=== PATIENT | female | born 1935 | race Caucasian/White ===

== ENCOUNTER 2021-08-17 17:47 | Inpatient (IN) | payer MEDICARE, OTHER ==
[2021-08-17] MEDS ORDERED: SODIUM CHLORIDE 0.9% 500 ML 500 ML IV ONE (18:11)
[2021-08-17 19:03] LABS: Basophils % (A) 0 %; Eosinophils # (A) 0.2 k/uL (0-0.7); Eosinophils % (A) 1 %; Lymphocytes # (A) 2.9 k/uL (1.0-4.8); Lymphocytes % (A) 25 %; MCH 28.6 pg (25.0-35.0); MCHC 32.5 g/dL (31.0-37.0); MCV 87.9 fL (80.0-100.0); Monocytes # (A) 0.4 k/uL (0-1.0); Monocytes % (A) 4 %; Neutrophils # (A) 7.9 k/uL (1.3-7.7); Neutrophils % (A) 68 %; Platelet Count 475 k/uL (150-450); RBC 4.21 m/uL (3.80-5.40); RDW 14.1 % (11.5-15.5); WBC 11.6 k/uL (3.8-10.6)
--- NOTE | 2021-08-17 19:05 | XR ---
EXAMINATION TYPE: XR chest 2V DATE OF EXAM: 08/17/2021 COMPARISON: NONE HISTORY: Altered mental status TECHNIQUE: 2 views FINDINGS: Heart is normal. Lungs are clear of infiltrate. There is no heart failure. There are no hil ar masses. Thoracic aorta is atheromatous. Bony thorax is intact. There is subacromial joint space na rrowing and impingement at both shoulder joints. IMPRESSION: No active cardiopulmonary disease.
[2021-08-17 19:11] LABS: Albumin 3.7 g/dL (3.5-5.0); Calcium 9.3 mg/dL (8.4-10.2); Potassium 4.3 mmol/L (3.5-5.1); Total Bilirubin 0.4 mg/dL (0.2-1.3); Total Protein 7.4 g/dL (6.3-8.2)
[2021-08-17 19:18] LABS: Prothrombin Time 10.5 sec (9.0-12.0)
[2021-08-17 19:21] LABS: Partial Thromboplastin Time 21.4 sec (22.0-30.0)
[2021-08-17] MEDS ORDERED: ONDANSETRON 4 MG/2 ML VIAL IVP STA (19:36)
[2021-08-17 20:06] LABS: Appearance,Urine Cloudy (Clear); Bacteria,Urine Rare /hpf; Bilirubin,Urine Negative (Negative); Blood,Urine Negative (Negative); Color,Urine Yellow; Glucose,Urine (UA) Negative (Negative); Hyaline Casts,Urine 1 /lpf (0-2); Ketones,Urine 1+ (Negative); Leukocyte Esterase,Urine Large (Negative); Mucus,Urine Rare /hpf; Nitrite,Urine Negative (Negative); Protein,Urine 2+ (Negative); RBC,Urine 7 /hpf (0-5); Specific Gravity,Urine 1.019 (1.001-1.035); Squamous Epithelial Cell,Urine 5 /hpf (0-4); Urobilinogen,Urine <2.0 mg/dL (<2.0); WBC,Urine >182 /hpf (0-5)
[2021-08-17 20:11] LABS: Amphetamine Screen,Urine Not Detected (NotDetected); Barbiturate Screen,Urine Not Detected (NotDetected); Benzodiazepines Screen,Urine Not Detected (NotDetected); Cocaine Screen,Urine Not Detected (NotDetected); Methadone Screen, Urine Not Detected (NotDetected); Opiate Screen,Urine Not Detected (NotDetected); Oxycodone Screen, Urine Not Detected (NotDetected); Phencyclidine Screen,Urine Not Detected (NotDetected); Tricyclic Antidepressant,Urine Not Detected (NotDetected); Urn Cannabinoid Scrn Not Detected (NotDetected)
--- NOTE | 2021-08-17 20:22 | ED ---
Female Urogenital HPI - General Chief complaint: Urogenital Stated complaint: possible UTI Source: patient Mode of arrival: EMS Limitations: no limitations - History of Present Illness Initial comments: 85-year-old female past history of dementia presents emergency Department with reported dizziness, weakness and burning with urination. Daughter provides majority of the history over the phone. Patient lives with the daughter and states that she has been treated for the past 1.5 weeks for a urinary tract infection. She was on Keflex. She finished the antibiotic however continues to have increased frequency of urination and burning. The daughter states that she has been unable to sleep because of her symptoms. She also reports that she's had some dizziness with inability to get up and eat. Because of her failure of outpatient therapy she was called an ambulance to have her brought to the hospital. Patient admits to the symptoms. Denies any abdominal pain or back pain. Denies issues with her bowel habits. No other alleviating, Perceptin or modifying factors - Related Data Allergies Allergy/AdvReac Type Severity Reaction Status Date / Time No Known Allergies Allergy Verified 08/17/21 20:49 Review of Systems ROS Statement: Those systems with pertinent positive or pertinent negative responses have been documented in the HPI. ROS Other: All systems not noted in ROS Statement are negative. Past Medical History History of Any Multi-Drug Resistant Organisms: None Reported Past Psychological History: No Psychological Hx Reported Smoking Status: Never smoker Past Alcohol Use History: None Reported Past Drug Use History: None Reported General Exam Limitations: no limitations Course Vital Signs 08/17/21 18:01 Temperature 97.4 F L Pulse Rate 79 Respiratory 16 Rate Blood Pressure 208/96 O2 Sat by Pulse 95 Oximetry Medical Decision Making - Medical Decision Making Upon arrival the patient is placed into room 7. A thorough history and physical exam is performed. IV is established A scissor conducted. Patient does provide a urine sample which does demonstrate gross infection. She is given a dose of Rocephin after blood cultures were obtained. Did recommend admission for IV antibiotics for which the patient did agree to. However also agrees to treatment plan. She remained in stable condition awaiting a bed on the floor. - Lab Data Result diagrams: 08/17/21 18:53 08/17/21 18:53 Lab Results 08/17/21 08/17/21 08/17/21 Range/Units 18:53 18:53 18:53 WBC 11.6 H (3.8-10.6) k/uL RBC 4.21 (3.80-5.40) m/uL Hgb 12.0 (11.4-16.0) gm/dL Hct 37.0 (34.0-46.0) % MCV 87.9 (80.0-100.0) fL MCH 28.6 (25.0-35.0) pg MCHC 32.5 (31.0-37.0) g/dL RDW 14.1 (11.5-15.5) % Plt Count 475 H (150-450) k/uL MPV 7.0 Neutrophils % 68 % Lymphocytes % 25 % Monocytes % 4 % Eosinophils % 1 % Basophils % 0 % Neutrophils # 7.9 H (1.3-7.7) k/uL Lymphocytes # 2.9 (1.0-4.8) k/uL Monocytes # 0.4 (0-1.0) k/uL Eosinophils # 0.2 (0-0.7) k/uL Basophils # 0.0 (0-0.2) k/uL PT 10.5 (9.0-12.0) sec INR 1.0 (<1.2) APTT 21.4 L (22.0-30.0) sec Sodium (137-145) mmol/L Potassium (3.5-5.1) mmol/L Chloride (98-107) mmol/L Carbon Dioxide (22-30) mmol/L Anion Gap mmol/L BUN (7-17) mg/dL Creatinine (0.52-1.04) mg/dL Est GFR (CKD-EPI)AfAm (>60 ml/min/1.73 sqM) Est GFR (CKD-EPI)NonAf (>60 ml/min/1.73 sqM) Glucose (74-99) mg/dL Calcium (8.4-10.2) mg/dL Total Bilirubin (0.2-1.3) mg/dL AST (14-36) U/L ALT (4-34) U/L Alkaline Phosphatase (38-126) U/L Troponin I (0.000-0.034) ng/mL Total Protein (6.3-8.2) g/dL Albumin (3.5-5.0) g/dL Urine Color Yellow Urine Appearance Cloudy H (Clear) Urine pH 6.0 (5.0-8.0) Ur Specific Kimberly 1.019 (1.001-1.035) Urine Protein 2+ H (Negative) Urine Glucose (UA) Negative (Negative) Urine Ketones 1+ H (Negative) Urine Blood Negative (Negative) Urine Nitrite Negative (Negative) Urine Bilirubin Negative (Negative) Urine Urobilinogen <2.0 (<2.0) mg/dL Ur Leukocyte Esterase Large H (Negative) Urine RBC 7 H (0-5) /hpf Urine WBC >182 H (0-5) /hpf Urine WBC Clumps Few H (None) /hpf Ur Squamous Epith Cells 5 H (0-4) /hpf Urine Bacteria Rare H (None) /hpf Hyaline Casts 1 (0-2) /lpf Urine Mucus Rare H (None) /hpf Urine Opiates Screen Not Detected (NotDetected) Ur Oxycodone Screen Not Detected (NotDetected) Urine Methadone Screen Not Detected (NotDetected) Ur Propoxyphene Screen Not Detected (NotDetected) Ur Barbiturates Screen Not Detected (NotDetected) U Tricyclic Antidepress Not Detected (NotDetected) Ur Phencyclidine Scrn Not Detected (NotDetected) Ur Amphetamines Screen Not Detected (NotDetected) U Methamphetamines Scrn Not Detected (NotDetected) U Benzodiazepines Scrn Not Detected (NotDetected) Urine Cocaine Screen Not Detected (NotDetected) U Marijuana (THC) Screen Not Detected (NotDetected) 08/17/21 08/17/21 Range/Units 18:53 18:53 WBC (3.8-10.6) k/uL RBC (3.80-5.40) m/uL Hgb (11.4-16.0) gm/dL Hct (34.0-46.0) % MCV (80.0-100.0) fL MCH (25.0-35.0) pg MCHC (31.0-37.0) g/dL RDW (11.5-15.5) % Plt Count (150-450) k/uL MPV Neutrophils % % Lymphocytes % % Monocytes % % Eosinophils % % Basophils % % Neutrophils # (1.3-7.7) k/uL Lymphocytes # (1.0-4.8) k/uL Monocytes # (0-1.0) k/uL Eosinophils # (0-0.7) k/uL Basophils # (0-0.2) k/uL PT (9.0-12.0) sec INR (<1.2) APTT (22.0-30.0) sec Sodium 135 L (137-145) mmol/L Potassium 4.3 (3.5-5.1) mmol/L Chloride 102 (98-107) mmol/L Carbon Dioxide 17 L (22-30) mmol/L Anion Gap 16 mmol/L BUN 23 H (7-17) mg/dL Creatinine 1.37 H (0.52-1.04) mg/dL Est GFR (CKD-EPI)AfAm 41 (>60 ml/min/1.73 sqM) Est GFR (CKD-EPI)NonAf 35 (>60 ml/min/1.73 sqM) Glucose 126 H (74-99) mg/dL Calcium 9.3 (8.4-10.2) mg/dL Total Bilirubin 0.4 (0.2-1.3) mg/dL AST 24 (14-36) U/L ALT 15 (4-34) U/L Alkaline Phosphatase 70 (38-126) U/L Troponin I 0.017 (0.000-0.034) ng/mL Total Protein 7.4 (6.3-8.2) g/dL Albumin 3.7 (3.5-5.0) g/dL Urine Color Urine Appearance (Clear) Urine pH (5.0-8.0) Ur Specific Kimberly (1.001-1.035) Urine Protein (Negative) Urine Glucose (UA) (Negative) Urine Ketones (Negative) Urine Blood (Negative) Urine Nitrite (Negative) Urine Bilirubin (Negative) Urine Urobilinogen (<2.0) mg/dL Ur Leukocyte Esterase (Negative) Urine RBC (0-5) /hpf Urine WBC (0-5) /hpf Urine WBC Clumps (None) /hpf Ur Squamous Epith Cells (0-4) /hpf Urine Bacteria (None) /hpf Hyaline Casts (0-2) /lpf Urine Mucus (None) /hpf Urine Opiates Screen (NotDetected) Ur Oxycodone Screen (NotDetected) Urine Methadone Screen (NotDetected) Ur Propoxyphene Screen (NotDetected) Ur Barbiturates Screen (NotDetected) U Tricyclic Antidepress (NotDetected) Ur Phencyclidine Scrn (NotDetected) Ur Amphetamines Screen (NotDetected) U Methamphetamines Scrn (NotDetected) U Benzodiazepines Scrn (NotDetected) Urine Cocaine Screen (NotDetected) U Marijuana (THC) Screen (NotDetected) - EKG Data EKG Comments: EKG demonstrates a normal sinus rhythm with a ventricular rate of 80. OK interval 180. QRS 128. QTC of 502. Right bundle branch block. No acute ST segment elevations Disposition Clinical Impression: UTI (urinary tract infection), Failure of outpatient treatment, Encephalopathy acute Disposition: ADMITTED IP TO THIS [facility] Condition: Stable Is patient prescribed a controlled substance at d/c from ED?: No Referrals: Sheng Gibson DO [Primary Care Provider] - 1-2 days Decision to Admit Reason: Admit from EC Decision Date: 08/17/21 Decision Time: 20:50
[2021-08-17] MEDS ORDERED: cefTRIAXone IN SWFI 1,000 MG/10 ML SYRINGE IVP STA (20:26)
[2021-08-17] MEDS ORDERED: NALOXONE 0.4 MG/ML 1 ML VIAL IV PRN (20:50)
[2021-08-17] MEDS ORDERED: ACETAMINOPHEN TAB 325 MG TAB PO PRN (20:50)
[2021-08-17] MEDS: SODIUM CHLORIDE 0.9% 1,000 ML IV SCH (22:05)
[2021-08-18 01:34] LABS: C Reactive Protein 1.7 mg/dL (<1.0)
[2021-08-18 01:41] LABS: Prothrombin Time 10.7 sec (9.0-12.0)
[2021-08-18] MEDS ORDERED: IBUPROFEN 400 MG TAB PO PRN (02:29)
[2021-08-18] MEDS ORDERED: ACETAMINOPHEN TAB 500 MG TAB PO PRN (02:29)
--- NOTE | 2021-08-18 02:43 | P.HPIM ---
History of Present Illness H&P Date: 08/17/21 Chief Complaint: generalized weakness, dysuria 85 year old female with advanced dementia patient recently about 1.5 weeks ago diagnosed with UTI , and was started on keflex which she finished the course. however, her symptoms of dysuria and frequent urination persisted along with generalized weakness and dizziness, and urinary incontinence. for which she was brought in by her daughter today , patient has no other complaints of fever, chills, chest pain , trouble domenic athing, body aches, nausea or vomiting . she denies any cough, sore throat, or changes in taste or smell sensation. she claims to be vaccinated against covid patient is not a reliable historian due to advanced dementia in the ED , she has elevated creatinine unkown baseline. urine was not a clean catch COVID test positive, patient is not requiring oxygen Review of Systems Pertinent positives as noted in HPI. All other systems were reviewed and are negative Past Medical History Past Medical History: Unable to Obtain Additional Past Medical History / Comment(s): COPD, HTN, DM and hypothyroid , dementia History of Any Multi-Drug Resistant Organisms: None Reported Past Surgical History: Unable to Obtain Past Psychological History: No Psychological Hx Reported Smoking Status: Never smoker Past Alcohol Use History: None Reported Past Drug Use History: None Reported - Past Family History family Family Medical History: Unable to Obtain Medications and Allergies Home Medications Medication Instructions Recorded Confirmed Type Acetaminophen Tab [Tylenol Tab] 500 mg PO Q6H PRN 08/17/21 08/17/21 History Aspirin 81 mg PO DAILY@1000 08/17/21 08/17/21 History Ibuprofen [Motrin Ib] 400 mg PO Q8H PRN 08/17/21 08/17/21 History Levothyroxine Sodium [Synthroid] 25 mcg PO DAILY@209908/17/21 08/17/21 History Metoprolol Succinate [Toprol XL] 50 mg PO DAILY@1500 08/17/21 08/17/21 History Nitrofurantoin Macrocrystal 50 mg PO DAILY@1000 08/17/21 08/17/21 History [Macrodantin] Rosuvastatin Calcium [Crestor] 5 mg PO MOFR@209908/17/21 08/17/21 History hydrALAZINE HCL [Apresoline] 25 mg PO TID@1000,209908/17/21 08/17/21 History lisinopriL [Zestril] 40 mg PO DAILY@1500 08/17/21 08/17/21 History metFORMIN HCL [Glucophage] 500 mg PO TID@1000,1500,2100 08/17/21 08/17/21 History Allergies Allergy/AdvReac Type Severity Reaction Status Date / Time No Known Allergies Allergy Verified 08/17/21 20:49 Physical Exam Vitals: Vital Signs Temp Pulse Resp BP Pulse Ox 08/17/21 22:21 93 18 203/104 95 08/17/21 18:01 97.4 F L 79 16 208/96 95 Intake and Output 08/17/21 08/17/21 08/17/21 06:59 14:59 22:59 Other: Weight 81.647 kg Constitutional: No acute distress, conversant, pleasant, cooperative Eyes: Anicteric sclerae, moist conjunctiva, Pupils equal round reactive to light ENMT: NC/AT Oropharynx clear, no erythema, or exudates Neck: Supple, no masses, or JVD No carotid bruits No thyromegaly Lungs: Clear to auscultation Clear to percussion Normal respiratory effort, no accessory muscle use Cardiovascular: Heart regular in rate and rhythm, No murmurs, gallops, or rubs No peripheral edema Abdominal: Soft Nontender, no guarding, rebound or rigidity Abdomen moving with respiration Normoactive bowel sounds No hepatomegaly, No splenomegaly No palpable mass No abdominal wall hernia noted Skin: Normal temperature, tone, texture, turgor No induration No subcutaneous nodules No rash, lesions No ulcers Extremities: No digital cyanosis No clubbing Pedal pulses intact and symmetrical Radial pulses intact and symmetrical No calf tenderness Psychiatric: Alert and oriented to person, only Neuro Muscles Strength 3-4/5 in all 4 extremities Sensation to light touch grossly present throughout Cranial nerves II-XII grossly intact Lymphatics: no palpable cervical or supraclavicular , or inguinal lymph nodes Results CBC & Chem 7: 08/17/21 18:53 08/17/21 18:53 Labs: Abnormal Lab Results - Last 24 Hours (Table) 08/17/21 08/17/21 08/17/21 Range/Units 18:53 18:53 18:53 WBC 11.6 H (3.8-10.6) k/uL Plt Count 475 H (150-450) k/uL Neutrophils # 7.9 H (1.3-7.7) k/uL APTT 21.4 L (22.0-30.0) sec Sodium (137-145) mmol/L Carbon Dioxide (22-30) mmol/L BUN (7-17) mg/dL Creatinine (0.52-1.04) mg/dL Glucose (74-99) mg/dL Urine Appearance Cloudy H (Clear) Urine Protein 2+ H (Negative) Urine Ketones 1+ H (Negative) Ur Leukocyte Esterase Large H (Negative) Urine RBC 7 H (0-5) /hpf Urine WBC >182 H (0-5) /hpf Urine WBC Clumps Few H (None) /hpf Ur Squamous Epith Cells 5 H (0-4) /hpf Urine Bacteria Rare H (None) /hpf Urine Mucus Rare H (None) /hpf Coronavirus (PCR) (Not Detectd) 08/17/21 08/17/21 Range/Units 18:53 21:42 WBC (3.8-10.6) k/uL Plt Count (150-450) k/uL Neutrophils # (1.3-7.7) k/uL APTT (22.0-30.0) sec Sodium 135 L (137-145) mmol/L Carbon Dioxide 17 L (22-30) mmol/L BUN 23 H (7-17) mg/dL Creatinine 1.37 H (0.52-1.04) mg/dL Glucose 126 H (74-99) mg/dL Urine Appearance (Clear) Urine Protein (Negative) Urine Ketones (Negative) Ur Leukocyte Esterase (Negative) Urine RBC (0-5) /hpf Urine WBC (0-5) /hpf Urine WBC Clumps (None) /hpf Ur Squamous Epith Cells (0-4) /hpf Urine Bacteria (None) /hpf Urine Mucus (None) /hpf Coronavirus (PCR) Detected A (Not Detectd) Assessment and Plan Assessment: urinary tract infection failed outpatient therapy COVID positive , without respiratory symptoms plan supportive care check D-dimer, LDH CRP, ferritin, trops, PT/INR, for prognostic value currently on room air tylenol for fever follow up cultures empiric antibiotics with Rocephin for UTI monitor vital signs elevated creatinine , unknown baseline renal function possible component of CKD due to underlying DM and advanced ago avoid nephrotoxic meds monitor urine output chronic conditions COPD , compensated, duo nebs PRN DM , hold oral hypoglycemic agents , insulin sliding scale hypertension , resume BP meds hypothryoid , resume levo thyroxin dementia full code DVT PPX lovenox sc daily anticipated length of stay > 2 midnights
[2021-08-18 05:42] LABS: Basophils % (A) 0 %; Eosinophils # (A) 0.2 k/uL (0-0.7); Eosinophils % (A) 3 %; HCT 38.4 % (34.0-46.0); HGB 12.1 gm/dL (11.4-16.0); Lymphocytes # (A) 1.9 k/uL (1.0-4.8); Lymphocytes % (A) 23 %; MCH 28.1 pg (25.0-35.0); MCHC 31.4 g/dL (31.0-37.0); MCV 89.4 fL (80.0-100.0); Mean Platelet Volume 6.6; Monocytes # (A) 0.3 k/uL (0-1.0); Monocytes % (A) 4 %; Neutrophils # (A) 5.8 k/uL (1.3-7.7); Neutrophils % (A) 69 %; Platelet Count 445 k/uL (150-450); WBC 8.5 k/uL (3.8-10.6)
[2021-08-18 06:04] LABS: Potassium 4.5 mmol/L (3.5-5.1)
[2021-08-18] MEDS ORDERED: cloNIDine HCL 0.2 MG TAB PO STA (06:19)
[2021-08-18] MEDS: SODIUM CHLORIDE 0.9% 1,000 ML IV SCH ×2 (08:28→23:31)
[2021-08-18] MEDS: ENOXAPARIN 40 MG/0.4 ML SYRINGE SQ SCH (08:29)
[2021-08-18] MEDS: hydrALAZINE HCL 25 MG TAB PO SCH ×2 (08:29→20:55)
[2021-08-18] MEDS: ASPIRIN 81 MG PO SCH (08:29)
[2021-08-18 08:30] LABS: Glucose,Whole Blood 153 mg/dL (75-99)
[2021-08-18] MEDS: INSULIN ASPART (NovoLOG) 100 UNIT/ML VIAL SQ SCH ×4 (08:32→20:55)
[2021-08-18 13:31] LABS: Glucose,Whole Blood 140 mg/dL (75-99)
[2021-08-18] MEDS ORDERED: HALOPERIDOL LACTATE 5 MG/ML 1 ML VIAL IM PRN (14:10)
--- NOTE | 2021-08-18 14:39 | P.PN ---
Subjective Progress Note Date: 08/18/21 Patient appears to be dizzy, weak. Denies any shortness of breath, pain. Denies dysuria. He denies fevers. Objective - Vital Signs Vital signs: Vital Signs Temp 97.9 F 08/18/21 08:26 Pulse 85 08/18/21 13:05 Resp 18 08/18/21 13:05 BP 165/90 08/18/21 13:05 Pulse Ox 96 08/18/21 13:05 Intake & Output 08/17/21 08/18/21 08/18/21 18:59 06:59 18:59 Weight 81.647 kg Other: Voiding Method Bedside Commode - Exam Gen: awake, alert HEENT: normocephalic, atraumatic, good hearing acuity, moist mucous membranes Resp: good air exchange, breathing comfortably with no accessory muscle use CVS: good distal perfusion x 4, GI: soft, NTTP, ND : + SPT, no CVAT, muhammad catheter not present MSK: no pitting edema, no clubbing Neuro: non-focal, moving all extremities Psych: cooperative, euthymic mood - Labs CBC & Chem 7: 08/18/21 05:19 08/18/21 05:19 Labs: Abnormal Lab Results - Last 24 Hours (Table) 08/17/21 08/17/21 08/17/21 Range/Units 00:00 00:00 18:53 WBC 11.6 H (3.8-10.6) k/uL Plt Count 475 H (150-450) k/uL Neutrophils # 7.9 H (1.3-7.7) k/uL APTT (22.0-30.0) sec Fibrinogen 518 H (200-500) mg/dL D-Dimer 1.55 H (<0.60) mg/L FEU Sodium (137-145) mmol/L Carbon Dioxide (22-30) mmol/L BUN (7-17) mg/dL Creatinine (0.52-1.04) mg/dL Glucose (74-99) mg/dL POC Glucose (mg/dL) (75-99) mg/dL C-Reactive Protein 1.7 H (<1.0) mg/dL Urine Appearance (Clear) Urine Protein (Negative) Urine Ketones (Negative) Ur Leukocyte Esterase (Negative) Urine RBC (0-5) /hpf Urine WBC (0-5) /hpf Urine WBC Clumps (None) /hpf Ur Squamous Epith Cells (0-4) /hpf Urine Bacteria (None) /hpf Urine Mucus (None) /hpf Coronavirus (PCR) (Not Detectd) 08/17/21 08/17/21 08/17/21 Range/Units 18:53 18:53 18:53 WBC (3.8-10.6) k/uL Plt Count (150-450) k/uL Neutrophils # (1.3-7.7) k/uL APTT 21.4 L (22.0-30.0) sec Fibrinogen (200-500) mg/dL D-Dimer (<0.60) mg/L FEU Sodium 135 L (137-145) mmol/L Carbon Dioxide 17 L (22-30) mmol/L BUN 23 H (7-17) mg/dL Creatinine 1.37 H (0.52-1.04) mg/dL Glucose 126 H (74-99) mg/dL POC Glucose (mg/dL) (75-99) mg/dL C-Reactive Protein (<1.0) mg/dL Urine Appearance Cloudy H (Clear) Urine Protein 2+ H (Negative) Urine Ketones 1+ H (Negative) Ur Leukocyte Esterase Large H (Negative) Urine RBC 7 H (0-5) /hpf Urine WBC >182 H (0-5) /hpf Urine WBC Clumps Few H (None) /hpf Ur Squamous Epith Cells 5 H (0-4) /hpf Urine Bacteria Rare H (None) /hpf Urine Mucus Rare H (None) /hpf Coronavirus (PCR) (Not Detectd) 08/17/21 08/18/21 08/18/21 Range/Units 21:42 05:19 08:30 WBC (3.8-10.6) k/uL Plt Count (150-450) k/uL Neutrophils # (1.3-7.7) k/uL APTT (22.0-30.0) sec Fibrinogen (200-500) mg/dL D-Dimer (<0.60) mg/L FEU Sodium 136 L (137-145) mmol/L Carbon Dioxide 21 L (22-30) mmol/L BUN 19 H (7-17) mg/dL Creatinine 1.17 H (0.52-1.04) mg/dL Glucose 139 H (74-99) mg/dL POC Glucose (mg/dL) 153 H (75-99) mg/dL C-Reactive Protein (<1.0) mg/dL Urine Appearance (Clear) Urine Protein (Negative) Urine Ketones (Negative) Ur Leukocyte Esterase (Negative) Urine RBC (0-5) /hpf Urine WBC (0-5) /hpf Urine WBC Clumps (None) /hpf Ur Squamous Epith Cells (0-4) /hpf Urine Bacteria (None) /hpf Urine Mucus (None) /hpf Coronavirus (PCR) Detected A (Not Detectd) 08/18/21 Range/Units 13:29 WBC (3.8-10.6) k/uL Plt Count (150-450) k/uL Neutrophils # (1.3-7.7) k/uL APTT (22.0-30.0) sec Fibrinogen (200-500) mg/dL D-Dimer (<0.60) mg/L FEU Sodium (137-145) mmol/L Carbon Dioxide (22-30) mmol/L BUN (7-17) mg/dL Creatinine (0.52-1.04) mg/dL Glucose (74-99) mg/dL POC Glucose (mg/dL) 140 H (75-99) mg/dL C-Reactive Protein (<1.0) mg/dL Urine Appearance (Clear) Urine Protein (Negative) Urine Ketones (Negative) Ur Leukocyte Esterase (Negative) Urine RBC (0-5) /hpf Urine WBC (0-5) /hpf Urine WBC Clumps (None) /hpf Ur Squamous Epith Cells (0-4) /hpf Urine Bacteria (None) /hpf Urine Mucus (None) /hpf Coronavirus (PCR) (Not Detectd) Microbiology - Last 24 Hours (Table) 08/17/21 18:53 Urine Culture - Preliminary Urine,Voided Assessment and Plan Assessment: Urinary tract infection failed outpatient therapy COVID positive , without respiratory symptoms supportive care check D-dimer, LDH CRP, ferritin, trops, PT/INR, for prognostic value currently on room air tylenol for fever follow up cultures empiric antibiotics with Rocephin for UTI monitor vital signs Elevated creatinine, unknown baseline renal function possible component of CKD due to underlying DM and advanced age avoid nephrotoxic meds monitor urine output Renal US, pending COPD duo nebs PRN DM Hypertension Hypothryoid Dementia hold oral hypoglycemic agents, insulin sliding scale resume BP meds resume levothyroxine Full code DVT PPX lovenox sc daily
--- NOTE | 2021-08-18 15:59 | US ---
EXAMINATION TYPE: US kidneys/renal and bladder DATE OF EXAM: 08/18/2021 COMPARISON: NONE CLINICAL HISTORY: UTI, PAULO. COVID-19 inpatient EXAM MEASUREMENTS: Right Kidney: 10.3 x 4.6 x 5.4 cm Left Kidney: 10.4 x 4.7 x 4.7 cm Right Kidney: Multiple anechoic foci seen; largest area appears to have some internal echoes measurin g 3.3 x 2.3 x 2.1 cm at the superior pole. Left Kidney: Multiple anechoic foci seen; largest measuring 1.4 x 1.3 x 1.5 cm at the inferior pole. Bladder: Not seen, bladder area scanned There is no evidence for hydronephrosis at this point in time. No nephrolithiasis is seen. No solid masses are identified. The urinary bladder is anechoic. Bilateral ureteral jets are seen. IMPRESSION: Renal cystic changes noted.
[2021-08-18] MEDS: lisinopriL 20 MG TAB PO SCH (16:28)
[2021-08-18] MEDS: METOPROLOL SUCCINATE (ER) 50 MG TAB.ER.24H PO SCH (16:29)
[2021-08-18 17:49] LABS: Glucose,Whole Blood 177 mg/dL (75-99)
[2021-08-18 20:17] LABS: Glucose,Whole Blood 141 mg/dL (75-99)
[2021-08-18] MEDS: LEVOTHYROXINE 25 MCG TAB PO SCH (20:55)
[2021-08-19] MEDS ORDERED: cloNIDine HCL 0.2 MG TAB PO ONE (02:00)
[2021-08-19 07:43] LABS: Glucose,Whole Blood 161 mg/dL (75-99)
[2021-08-19] MEDS: ENOXAPARIN 40 MG/0.4 ML SYRINGE SQ SCH (09:30)
[2021-08-19] MEDS: hydrALAZINE HCL 25 MG TAB PO SCH ×2 (09:30→21:01)
[2021-08-19] MEDS: INSULIN ASPART (NovoLOG) 100 UNIT/ML VIAL SQ SCH ×4 (09:30→21:00)
[2021-08-19] MEDS: ASPIRIN 81 MG PO SCH (09:30)
[2021-08-19 11:45] VITALS: BMI 29.9
[2021-08-19 12:27] LABS: Glucose,Whole Blood 120 mg/dL (75-99)
--- NOTE | 2021-08-19 15:28 | P.PN ---
Subjective Progress Note Date: 08/19/21 Patient appears to be weak but appears significantly less agitated. Denies any shortness of breath, pain. Denies dysuria. She denies fevers. Objective - Vital Signs Vital signs: Vital Signs Temp 97.4 F L 08/19/21 14:39 Pulse 82 08/19/21 14:39 Resp 18 08/19/21 14:39 BP 180/69 08/19/21 14:39 Pulse Ox 96 08/19/21 14:39 Intake & Output 08/18/21 08/19/21 08/19/21 18:59 06:59 18:59 Intake Total 222 500 240 Balance 222 500 240 Weight 81.647 kg 81.647 kg Intake: Oral 222 500 240 Other: Voiding Method Toilet Toilet # Voids 3 4 3 - Exam Gen: awake, alert HEENT: normocephalic, atraumatic, good hearing acuity, moist mucous membranes Resp: good air exchange, breathing comfortably with no accessory muscle use CVS: good distal perfusion x 4, GI: soft, NTTP, ND : + SPT, no CVAT, muhammad catheter not present MSK: no pitting edema, no clubbing Neuro: non-focal, moving all extremities Psych: cooperative, euthymic mood - Labs CBC & Chem 7: 08/18/21 05:19 08/18/21 05:19 Labs: Abnormal Lab Results - Last 24 Hours (Table) 08/18/21 08/18/21 08/19/21 Range/Units 17:42 20:15 07:31 POC Glucose (mg/dL) 177 H 141 H 161 H (75-99) mg/dL 08/19/21 Range/Units 12:09 POC Glucose (mg/dL) 120 H (75-99) mg/dL Microbiology - Last 24 Hours (Table) 08/17/21 18:45 Blood Culture - Preliminary Blood No Growth after 24 hours 08/17/21 18:30 Blood Culture - Preliminary Blood No Growth after 24 hours Assessment and Plan Assessment: Urinary tract infection failed outpatient therapy COVID positive , without respiratory symptoms supportive care check D-dimer, LDH CRP, ferritin, trops, PT/INR, for prognostic value currently on room air tylenol for fever follow up cultures, pending empiric antibiotics with Rocephin for UTI monitor vital signs PAULO on CKD III, improving avoid nephrotoxic meds monitor urine output Renal US, without hydronephrosis, abscess, but with benign renal cysts. COPD duo nebs PRN DM Hypertension Hypothryoid Dementia hold oral hypoglycemic agents, insulin sliding scale resume BP meds resume levothyroxine Full code DVT PPX lovenox sc daily
--- NOTE | 2021-08-19 15:30 | P.PN ---
Progress Note - Text Progress Note Date: 08/19/21 Dementia Delirium secondary to Covid and UTI I had a 46 minute goals of care discussion with patient's daughter Kristen as well as patient's son Erik who is the designated power of energy attorney. We discussed patient's overall clinical condition as well as the hospital course in terms of her acute care episode. We discussed CODE STATUS and what CPR entails as well as follow-up care to CPR and its complications. After a prolonged discussion, family agreed that patient's goals of care would be consistent with DO NOT RESUSCITATE DO NOT INTUBATE, and this change was reflected in the chart.
[2021-08-19] MEDS: lisinopriL 20 MG TAB PO SCH (16:11)
[2021-08-19 17:28] LABS: Glucose,Whole Blood 135 mg/dL (75-99)
[2021-08-19] MEDS: SODIUM CHLORIDE 0.9% 1,000 ML IV SCH (19:27)
[2021-08-19 20:47] LABS: Glucose,Whole Blood 138 mg/dL (75-99)
[2021-08-19] MEDS: LEVOTHYROXINE 25 MCG TAB PO SCH (21:00)
[2021-08-19] MEDS ORDERED: ATORVASTATIN 10 MG TAB PO SCH (21:00)
[2021-08-20] MEDS: SODIUM CHLORIDE 0.9% 1,000 ML IV SCH ×2 (03:48→15:44)
[2021-08-20 07:31] LABS: Glucose,Whole Blood 122 mg/dL (75-99)
[2021-08-20] MEDS: INSULIN ASPART (NovoLOG) 100 UNIT/ML VIAL SQ SCH ×4 (08:13→21:38)
[2021-08-20] MEDS: amLODIPine 5 MG TAB PO SCH (08:42)
[2021-08-20] MEDS: ASPIRIN 81 MG PO SCH (08:43)
[2021-08-20] MEDS: hydrALAZINE HCL 50 MG TAB PO SCH ×2 (08:43→20:46)
[2021-08-20] MEDS: ENOXAPARIN 40 MG/0.4 ML SYRINGE SQ SCH (08:43)
[2021-08-20 09:22] LABS: Basophils % (A) 1 %; Eosinophils # (A) 0.2 k/uL (0-0.7); Eosinophils % (A) 3 %; HCT 38.4 % (34.0-46.0); HGB 11.9 gm/dL (11.4-16.0); Hypochromasia Slight; Lymphocytes # (A) 2.2 k/uL (1.0-4.8); Lymphocytes % (A) 27 %; MCH 28.3 pg (25.0-35.0); MCHC 30.9 g/dL (31.0-37.0); MCV 91.4 fL (80.0-100.0); Mean Platelet Volume 6.9; Monocytes # (A) 0.4 k/uL (0-1.0); Monocytes % (A) 5 %; Neutrophils % (A) 63 %; Platelet Count 420 k/uL (150-450); WBC 7.9 k/uL (3.8-10.6)
[2021-08-20 09:24] LABS: African American GFR (CKD) 57 (>60 ml/min/1.73 sqM); Anion Gap 10 mmol/L; Blood Urea Nitrogen 16 mg/dL (7-17); Calcium 9.4 mg/dL (8.4-10.2); Carbon Dioxide 20 mmol/L (22-30); Chloride 109 mmol/L (98-107); Glucose 146 mg/dL (74-99); Magnesium 1.8 mg/dL (1.6-2.3); Non-African American GFR(CKD) 50 (>60 ml/min/1.73 sqM); Potassium 4.4 mmol/L (3.5-5.1); Sodium 139 mmol/L (137-145)
--- NOTE | 2021-08-20 12:08 | P.PN ---
Subjective Progress Note Date: 08/20/21 Patient appears to be clinically improving. Denies any shortness of breath, pain. Denies dysuria. She denies fevers. Microbiology showing gram-negative shaina growth, speciation and sensitivities are pending. Objective - Vital Signs Vital signs: Vital Signs Temp 97.7 F 08/20/21 07:00 Pulse 94 08/20/21 07:00 Resp 16 08/20/21 07:00 BP 202/70 08/20/21 07:00 Pulse Ox 94 L 08/20/21 07:00 Intake & Output 08/19/21 08/20/21 08/20/21 18:59 06:59 18:59 Intake Total 360 370 Output Total 200 Balance 160 370 Weight 81.647 kg Intake: Intake, IV Titration 370 Amount Sodium Chloride 0.9% 1, 320 000 ml @ 75 mls/hr IV . [id number] [facility] Rx#:[id number] cefTRIAXone 1 gm In 50 Sodium Chloride 0.9% 50 ml @ 100 mls/hr IVPB Q24H [facility] Rx#:[id number] Oral 360 Output: Urine 200 Other: Voiding Method Toilet Toilet Bedside Commode # Voids 3 4 - Exam Gen: awake, alert HEENT: normocephalic, atraumatic, good hearing acuity, moist mucous membranes Resp: good air exchange, breathing comfortably with no accessory muscle use CVS: good distal perfusion x 4, GI: soft, NTTP, ND : + SPT, no CVAT, muhammad catheter not present MSK: no pitting edema, no clubbing Neuro: non-focal, moving all extremities Psych: cooperative, euthymic mood - Labs CBC & Chem 7: 08/20/21 08:53 08/20/21 08:53 Labs: Abnormal Lab Results - Last 24 Hours (Table) 08/19/21 08/19/21 08/19/21 Range/Units 12:09 17:20 20:46 MCHC (31.0-37.0) g/dL Chloride (98-107) mmol/L Carbon Dioxide (22-30) mmol/L Glucose (74-99) mg/dL POC Glucose (mg/dL) 120 H 135 H 138 H (75-99) mg/dL 08/20/21 08/20/21 08/20/21 Range/Units 07:19 08:53 08:53 MCHC 30.9 L (31.0-37.0) g/dL Chloride 109 H (98-107) mmol/L Carbon Dioxide 20 L (22-30) mmol/L Glucose 146 H (74-99) mg/dL POC Glucose (mg/dL) 122 H (75-99) mg/dL Microbiology - Last 24 Hours (Table) 08/17/21 18:45 Blood Culture - Preliminary Blood No Growth after 48 hours 08/17/21 18:30 Blood Culture - Preliminary Blood No Growth after 48 hours 08/17/21 18:53 Urine Culture - Preliminary Urine,Voided Gram Neg Bacilli Assessment and Plan Assessment: Urinary tract infection failed outpatient therapy COVID positive , without respiratory symptoms supportive care check D-dimer, LDH CRP, ferritin, trops, PT/INR, for prognostic value currently on room air tylenol for fever follow up cultures, gram-negative rods, pending sensitivities and speciation empiric antibiotics with Rocephin for UTI monitor vital signs PAULO on CKD III, improving avoid nephrotoxic meds monitor urine output Renal US, without hydronephrosis, abscess, but with benign renal cysts. COPD duo nebs PRN DM Hypertension Hypothryoid Dementia hold oral hypoglycemic agents, insulin sliding scale resume BP meds resume levothyroxine Full code DVT PPX lovenox sc daily
[2021-08-20 12:10] LABS: Glucose,Whole Blood 132 mg/dL (75-99)
[2021-08-20] MEDS: METOPROLOL SUCCINATE (ER) 50 MG TAB.ER.24H PO SCH (15:44)
[2021-08-20] MEDS: lisinopriL 20 MG TAB PO SCH (15:44)
[2021-08-20 17:26] LABS: Glucose,Whole Blood 158 mg/dL (75-99)
[2021-08-20 20:41] LABS: Glucose,Whole Blood 134 mg/dL (75-99)
[2021-08-20] MEDS: LEVOTHYROXINE 25 MCG TAB PO SCH (20:46)
[2021-08-21] MEDS: SODIUM CHLORIDE 0.9% 1,000 ML IV SCH (05:47)
[2021-08-21] MEDS: hydrALAZINE HCL 50 MG TAB PO SCH (07:59)
[2021-08-21] MEDS: ASPIRIN 81 MG PO SCH (08:00)
[2021-08-21] MEDS: ENOXAPARIN 40 MG/0.4 ML SYRINGE SQ SCH (08:00)
[2021-08-21] MEDS: amLODIPine 5 MG TAB PO SCH (08:00)
[2021-08-21 08:25] LABS: Glucose,Whole Blood 153 mg/dL (75-99)
[2021-08-21] MEDS: INSULIN ASPART (NovoLOG) 100 UNIT/ML VIAL SQ SCH ×2 (08:45→14:45)
[2021-08-21 12:22] LABS: Glucose,Whole Blood 140 mg/dL (75-99)
--- NOTE | 2021-08-21 14:35 | P.DS ---
Providers Date of admission: 08/19/21 10:25 Expected date of discharge: 08/21/21 Attending physician: Jenifer Wyman MD Primary care physician: [facility] Course: Urinary tract infection failed outpatient therapy COVID positive , without respiratory symptoms Generalized weakness Patient was admitted for generalized weakness and was found to have urinary tract infection despite cephalexin for outpatient therapy, also found to be Covid positive and vaccinated individual with no respiratory symptoms. Patient was given supportive care, her inflammatory markers were drawn for prognostic evaluation. However, she did not develop any symptoms of coronavirus. Tylenol was given for fever. Cultures grew E. coli which was mostly sensitive, and treated with ceftriaxone and an outpatient course of Ceftin air for a total of 10 days. Patient worked with PT and improved from minimal assist on initial evaluation to supervision along. Patient was discharged home with home care. PAULO on CKD III, improving Improved with IV fluids. COPD DM Hypertension Hypothryoid Dementia Home medication changes on discharge included: The addition of amlodipine, the increase of hydralazine from 25 three times a day to 50 three times a day which improved her blood pressures from 200s over 90s to 114 over 80s I spent 43 minutes preparing this discharge. Assessment: Gen: awake, alert HEENT: normocephalic, atraumatic, good hearing acuity, moist mucous membranes Resp: good air exchange, breathing comfortably with no accessory muscle use CVS: good distal perfusion x 4, GI: soft, NTTP, ND : + SPT, no CVAT, muhammad catheter not present MSK: no pitting edema, no clubbing Neuro: non-focal, moving all extremities Psych: cooperative, euthymic mood Patient Condition at Discharge: Good Plan - Discharge Summary Discharge Rx Participant: No New Discharge Prescriptions: New hydrALAZINE HCL [Apresoline] 50 mg PO TID #90 tab Cefdinir 300 mg PO Q12HR #12 cap amLODIPine [Norvasc] 5 mg PO DAILY #30 tab Continue Ibuprofen [Motrin Ib] 400 mg PO Q8H PRN PRN Reason: Pain Or Fever > 100.5 Acetaminophen Tab [Tylenol] 500 mg PO Q6H PRN PRN Reason: Pain Or Fever > 100.5 Levothyroxine Sodium [Synthroid] 25 mcg PO DAILY@2100 Rosuvastatin Calcium [Crestor] 5 mg PO MOFR@2100 metFORMIN HCL [Glucophage] 500 mg PO TID@1000,1500,2100 Aspirin 81 mg PO DAILY@1000 lisinopriL [Zestril] 40 mg PO DAILY@1500 Metoprolol Succinate [Toprol XL] 50 mg PO DAILY@1500 Discontinued Nitrofurantoin Macrocrystal [Macrodantin] 50 mg PO DAILY@1000 hydrALAZINE HCL [Apresoline] 25 mg PO TID@1000,2100 Discharge Medication List Acetaminophen Tab [Tylenol] 500 mg PO Q6H PRN 08/17/21 [History] Aspirin 81 mg PO DAILY@1000 08/17/21 [History] Ibuprofen [Motrin Ib] 400 mg PO Q8H PRN 08/17/21 [History] Levothyroxine Sodium [Synthroid] 25 mcg PO DAILY@209908/17/21 [History] Metoprolol Succinate [Toprol XL] 50 mg PO DAILY@1500 08/17/21 [History] Rosuvastatin Calcium [Crestor] 5 mg PO MOFR@209908/17/21 [History] lisinopriL [Zestril] 40 mg PO DAILY@1500 08/17/21 [History] metFORMIN HCL [Glucophage] 500 mg PO TID@1000,1500,209908/17/21 [History] Cefdinir 300 mg PO Q12HR #12 cap 08/21/21 [Rx] amLODIPine [Norvasc] 5 mg PO DAILY #30 tab 08/21/21 [Rx] hydrALAZINE HCL [Apresoline] 50 mg PO TID #90 tab 08/21/21 [Rx] Follow up Appointment(s)/Referral(s): Sheng Gibson DO [Primary Care Provider] - 1-2 days Patient Instructions/Handouts: Coronavirus Disease 2019 (COVID-19), Urinary Tract Infection in Women (DC), Dizziness (GEN) Discharge Disposition: HOME WITH HOME HEALTH SERVICES
[2021-08-21 15:20] VITALS: BP 160/72; PULSE 93; RESP 16; TEMP 97.2
== END 2021-08-21 15:30 | disposition home health service (06) | DRG 689 ==
LOC: EC 17:47 → 6NMEDSUR 20:52 → OBSVTOIN 08-19 10:25
PROVIDERS: ADMIT Internal Medicine; ATTEND Internal Medicine
DX: N39.0 Urinary tract infection, site not specified (principal); U07.1 COVID-19; G93.40 Encephalopathy, unspecified; N17.9 Acute kidney failure, unspecified; E03.9 Hypothyroidism, unspecified; E11.22 Type 2 diabetes mellitus with diabetic chronic kidney disease; F03.90 Unspecified dementia, unspecified severity, without behavioral disturbance, psychotic disturbance, mood disturbance, and anxiety; I12.9 Hypertensive chronic kidney disease with stage 1 through stage 4 chronic kidney disease, or unspecified chronic kidney disease; J44.9 Chronic obstructive pulmonary disease, unspecified; N18.30 Chronic kidney disease, stage 3 unspecified; N28.1 Cyst of kidney, acquired; Z66 Do not resuscitate; Z79.82 Long term (current) use of aspirin; Z79.890 Hormone replacement therapy; Z79.899 Other long term (current) drug therapy; Z79.84 Long term (current) use of oral hypoglycemic drugs
CPT/HCPCS: 36415; 71046; 76770; 80048; 80053; 80306; 81001; 82728; 83615; 83735; 84145; 84484; 85025; 85379; 85384; 85610; 85730; 86140; 87040; 87077; 87086; 87186; 87635; 93005; 96374; 99285